=== PATIENT | female | born 1945 | race Caucasian/White ===

== ENCOUNTER 2017-03-26 22:41 | Emergency (ER) | payer MEDICAID ==
[~2017-03-26] VITALS: Ht 152.4 cm; Wt 65.0 kg
[~2017-03-26 22:41] MED LIST: METF500T4 PO; UNKNOWN MEDS
[2017-03-26 22:44] VITALS: Ht 152.4 cm; Wt 65.0 kg
--- NOTE | 2017-03-27 01:35 | ERD ---
ER Documentation Chief Complaint Date/Time DATE: 03/27/17 TIME: 01:34 Chief Complaint c/o dysuria and frequency x 1 day. HPI dysuria x 1 day, burning and urgency , pt reports DM ROS All systems reviewed and are negative except as per history of present illness. Medications Home Meds Reported Medications [Unknown Meds] No Conflict Check 12/04/11 Metformin* (Glucophage*) 500 Mg Tab, PO BID 12/04/11 Allergies Allergies: Coded Allergies: No Known Allergy (Unverified , 12/04/11) PMhx/Soc History of Surgery: Yes (RIGHT LEG ABOVE THE KNEE AMPUTATION ) Anesthesia Reaction: No Hx Neurological Disorder: No Hx Respiratory Disorders: No Hx Cardiac Disorders: Yes (HTN, HIGH CHOLESTEROL) Hx Psychiatric Problems: No Hx Miscellaneous Medical Probl: No Hx Alcohol Use: No Hx Substance Use: No Hx Tobacco Use: No Physical Exam Vitals Vital Signs Date Time Temp Pulse Resp B/P Pulse Ox O2 Delivery O2 Flow Rate FiO2 03/26/17 22:44 99.2 81 20 161/97 80 Physical Exam Const: [ Nourished well-hydrated well-appearing 71-year-old female no acute distress Head: Atraumatic Eyes: Normal Conjunctiva ENT: Normal External Ears, Nose and Mouth. Neck: Full range of motion..~ No meningismus. Resp: Clear to auscultation bilaterally Cardio: Regular rate and rhythm, no murmurs Abd: Soft, non tender, non distended. Normal bowel sounds Skin: No petechiae or rashes Back: No midline or flank tenderness Ext: No cyanosis, or edema Neur: Awake and alert Psych: Normal Mood and Affect Results 24 hrs Laboratory Tests Test 03/27/17 01:46 03/27/17 01:50 Urine Color RED Urine Clarity SLIGHTLY CLOUDY Urine pH 7.0 Urine Specific Gail 1.005 Urine Ketones NEGATIVEmg/dL Urine Nitrite NEGATIVEmg/dL Urine Bilirubin NEGATIVEmg/dL Urine Urobilinogen NEGATIVEmg/dL Urine Leukocyte Esterase 3+Oswaldo/ul Urine Microscopic RBC > 182/HPF Urine Microscopic WBC > 182/HPF Urine Squamous Epithelial Cells FEW/HPF Urine Transitional Epithelial Cells FEW/HPF Urine Bacteria FEW/HPF Urine Hemoglobin 3+mg/dL Urine Glucose NEGATIVEmg/dL Urine Total Protein 2+mg/dl Bedside Urine pH (LAB) 6.5 Bedside Urine Protein (LAB) 3+ Bedside Urine Glucose (UA) Negative Bedside Urine Ketones (LAB) Negative Bedside Urine Blood 3+ Bedside Urine Nitrite (LAB) Negative Bedside Urine Leukocyte Esterase (L 3+ Current Medications Medications (Trade) Dose Ordered Sig/Analisa Route PRN Reason Start Time Stop Time Status Last Admin Dose Admin Acetaminophen (Tylenol Tab) 650 mg ONCE ONCE PO 03/27/17 02:00 03/27/17 02:01 DC 03/27/17 01:46 Phenazopyridine HCl (Pyridium) 200 mg ONCE ONCE PO 03/27/17 02:00 03/27/17 02:01 DC 03/27/17 01:46 Procedures/MDM This pleasant 71-year-old female presents to emergency department for evaluation of dysuria, patient is crying in exam room, reports burning, urgency and pain. 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 Emergency room course includes urinalysis, positive for leukocytosis, nitrates, and hematuria, plan to treat with Bactrim double strength 1 tab p.o. twice daily 14 days follow-up with primary physician for repeat urinalysis at the end of antibiotic treatment, return to emergency department if symptoms fail to improve as anticipated, Patient is stable with no new complaints during ER course, clinically there is no current evidence to suggest , sepsis, acute abdomen, pyelonephritis or any other emergent condition appearing to require further evaluation or hospitalization. I feel the patient is stable for discharge at this time. I have discussed results, examination findings, the treatment plan with the patient and family present prior to discharge. Indications for emergent reevaluation, side effects of medication were also discussed. All questions were answered. Patient verbalizes understanding and agrees with plan of care. Departure Diagnosis: Primary Impression: UTI (urinary tract infection) Urinary tract infection type: site unspecified Hematuria presence: with hematuria Qualified Code: N39.0 - Urinary tract infection with hematuria, site unspecified Condition: Good Patient Instructions: Understanding Urinary Tract Infections (UTIs) [facility] Additional Instructions: Thank you for for coming to the [facility] for your care today. Please ask your nurse or provider if you have questions about your care today and do not leave until all your questions have been answered. Please use any medications given as directed and follow-up with your doctor (or the doctor you were referred to) in the next 2-3 days. If you do not have a primary care doctor you may follow up at the [facility] (listed below). You may also use motrin and tylenol as needed for fever and/or pain unless instructed otherwise by your provider or nurse. Indications for more urgent follow-up have been discussed, but you may return to the Emergency Department at ANY time for any worrisome or worsening symptoms. If you have abdominal pain, please know that no test or exam you received is perfect and you should follow up within 8 hours for continued pain. If you had any imaging studies today, such as an X-Ray or CT Scan, these studies will be reviewed later by a radiologist. You will be called if there are important findings that were not identified today, so make sure the contact information you provided at registration is correct. If you received any narcotic pain control medicine today, such as Vicodin, Morphine or Dilaudid, your coordination and judgment may be affected for a number of hours. Please do not drive or operate heavy machinery, and you may want someone to assist you at home. If you were given a prescription for narcotic medication, be aware that it is very addictive- use sparingly and only if necessary. SABRINA MATA Mar 27, 2017 01:35
[2017-03-27 01:50] LABS: URINE BLOOD (Dip) POC 3+ (NEGATIVE)
[2017-03-27] MEDS ORDERED: PHENAZOPYRIDINE 100 MG TAB PO ONE (02:00)
[2017-03-27] MEDS ORDERED: ACETAMINOPHEN 325 MG TAB PO ONE (02:00)
[2017-03-27 02:34] LABS: ADD UMIC YES; UR ASCORBIC ACID NEGATIVE (NEGATIVE); UR BACTERIA FEW /HPF (NONE SEEN); UR BILIRUBIN (Dip) NEGATIVE (NEGATIVE); UR BLOOD (Dip) 3+ mg/dL (NEGATIVE); UR CLARITY SLIGHTLY CLOUDY (CLEAR); UR COLOR RED (YELLOW); UR GLUCOSE (Dip) NEGATIVE (NEGATIVE); UR KETONES (Dip) NEGATIVE (NEGATIVE); UR LEUKOCYTE ESTERASE (Dip) 3+ Leu/ul (NEGATIVE); UR NITRITE (Dip) NEGATIVE (NEGATIVE); UR RBC > 182 /HPF (0-5); UR SPECIFIC GRAVITY (Dip) 1.005 (1.003-1.030); UR SQUAMOUS EPITHELIAL CELL FEW /HPF (FEW); UR TOTAL PROTEIN (Dip) 2+ mg/dl (NEGATIVE); UR TRANSITIONAL EPI CELL FEW /HPF (NONE SEEN); UR UROBILINOGEN (Dip) NEGATIVE (NEGATIVE)
[2017-03-27] MEDS ORDERED: SULF1TAB31 PO (03:31)
[2017-03-27] MEDS ORDERED: PHEN-538 PO (03:32)
[2017-03-27 03:47] VITALS: BP 168/72; PULSE 62; RESP 17; TEMP 97.6
== END 2017-03-27 03:47 | disposition home or self-care (01) ==
LOC: FTE 22:41
DX: N39.0 Urinary tract infection, site not specified (principal); I10 Essential (primary) hypertension; E11.9 Type 2 diabetes mellitus without complications; Z79.84 Long term (current) use of oral hypoglycemic drugs
CPT/HCPCS: 81001; Z7502; Z7610; 81003; 99283

== ENCOUNTER 2018-01-31 03:56 | Emergency (ER) | END 2018-01-31 11:23 | disposition home or self-care (01) ==